=== PATIENT | male | born 1980 | race Two or more races ===

== ENCOUNTER 2018-07-31 18:34 | Emergency (ER) | payer MEDICAID, OTHER ==
[~2018-07-31] VITALS: Ht 165.1 cm; Wt 74.4 kg
[2018-07-31 21:10] VITALS: BP 127/85
[2018-07-31] MEDS ORDERED: ONDANSETRON ODT 4 MG TAB PO ONE (22:00)
[2018-07-31] MEDS ORDERED: MEPERIDINE HCL (50 MG/ML) 1 ML VIAL IM ONE (22:00)
[2018-07-31] MEDS ORDERED: HYDROcodone-ACET 10/325MG TAB ONE (22:37)
[2018-07-31] MEDS ORDERED: HYDROcodone-ACET 10/325MG TAB PO ONE (23:15)
== END 2018-07-31 23:13 | disposition home or self-care (01) ==
LOC: ER 18:34
DX: S43.142A Inferior dislocation of left acromioclavicular joint, initial encounter (principal); V87.8XXA Person injured in other specified noncollision transport accidents involving motor vehicle (traffic), initial encounter; Y93.I9 Activity, other involving external motion; Y92.488 Other paved roadways as the place of occurrence of the external cause; Y99.8 Other external cause status
CPT/HCPCS: 71046; 73000; 73030; 99283; Q0162

== ENCOUNTER 2021-11-29 20:52 | Emergency (ER) | payer BC, MEDICAID ==
[~2021-11-29] VITALS: Ht 162.6 cm; Wt 76.0 kg
[2021-11-30] MEDS ORDERED: HYDROcodone-ACET 10/325MG TAB PO ONE (03:15)
[2021-11-30 03:19] VITALS: BP 124/78
[2021-11-30] MEDS ORDERED: IBUP600T27 PO (05:13)
[2021-11-30] MEDS ORDERED: ACET-1803 PO (05:13)
[2021-11-30] MEDS ORDERED: HYDR-4902 PO (05:13)
== END 2021-11-30 05:21 | disposition home or self-care (01) ==
LOC: ER 20:52
DX: S82.301A Unspecified fracture of lower end of right tibia, initial encounter for closed fracture (principal); S82.831A Other fracture of upper and lower end of right fibula, initial encounter for closed fracture; Z88.6 Allergy status to analgesic agent; W11.XXXA Fall on and from ladder, initial encounter; Y93.89 Activity, other specified; Y92.89 Other specified places as the place of occurrence of the external cause; Y99.8 Other external cause status
CPT/HCPCS: 29515; 73610; 73630